=== PATIENT | female | born 1975 | race Caucasian/White ===

== ENCOUNTER 2017-12-30 15:09 | Outpatient (CLI) | payer OTHER ==
[2017-12-30 16:43] LABS: BILIRUBIN,URINE NEGATIVE (NEGATIVE); GLUCOSE, URINE (UA) NEGATIVE (NEGATIVE); KETONES,URINE (UA) NEGATIVE (NEGATIVE); LEUKOCYTE ESTERASE, URINE NEGATIVE (NEGATIVE); NITRITE,URINE NEGATIVE (NEGATIVE); OCCULT BLOOD,URINE SMALL (NEGATIVE); PH,URINE 5.5 PH (5.0-7.5); PROTEIN,URINE NEGATIVE (NEGATIVE); UROBILINOGEN,URINE 0.2 (NORMAL) E.U./dL (NORMAL)
[2017-12-30 16:45] LABS: CLARITY,URINE CLEAR (CLEAR); HCG UR QUAL NEGATIVE
== END 2017-12-30 15:10 | disposition home or self-care (01) ==
LOC: LAB 15:09
PROVIDERS: ATTEND Obstetrics & Gynecology
DX: Z01.812 Encounter for preprocedural laboratory examination (principal); N39.3 Stress incontinence (female) (male)
CPT/HCPCS: 81003; 81025

== ENCOUNTER 2018-01-01 08:30 | Day surgery (SDC) | payer OTHER ==
--- NOTE | 2017-12-30 13:40 | PREOP HISTORY & PHYSICAL ---
ANTICIPATED DATE FOR PROCEDURE: 01/01/2018 IDENTIFICATION: This is a 42-year-old G2, P2-0-0-2. HISTORY OF PRESENT ILLNESS: This is a patient of [facility] who presents for her scheduled preoperative visit. The patient has had a longstanding history of genuine stress incontinence. She states that whenever she laughs, coughs or sneezes, she will have loss of urine. She has to use Poise pads on a daily basis. She will soak 1 pad in a day. These symptoms have been occurring for at least 1-2 years. She denies any problems initiating urinary streams or emptying her bladder. She denies any nocturia, hematuria nor dysuria. Her symptoms are worse when she works out. Currently, she is doing well. Denies any nausea, vomiting, fevers, chills, diarrhea or constipation. PAST MEDICAL HISTORY: Migraine headaches. PAST SURGICAL HISTORY 1. delivery x1. 2. On 10/20/2014, laparoscopic-assisted vaginal hysterectomy and bilateral salpingectomy secondary to microinvasive adenocarcinoma in situ. 3. On 06/15/2011, LEEP. ALLERGIES: IMITREX, IN WHICH HER NECK MUSCLES GET TIGHT AND THEY FEEL LIKE THEY ARE ON FIRE. MEDICATIONS: Maxalt 10 mg p.r.n. SOCIAL HISTORY: She denies any tobacco or illicit drug use. She does consume alcohol on a social basis. 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 Her is Robert, and they have sons Torres and Lucian. PAST OBSTETRICAL HISTORY: 1. With son Torres, she had a fourth-degree laceration secondary to vaginal delivery. 2. Scheduled delivery with the largest baby weighing 9 pounds 10 ounces. PAST GYNECOLOGICAL HISTORY: Pap smears are as follows: 08/06/2008 [facility]; 2007 colposcopy for endocervical curettage with reactive atypia; 08/26/2009 [facility]US Pap smear with presence of high risk HPV; 01/31/2010 colposcopy showing MIRIAN 1 with extension into the endocervical glands; 04/11/2011 positive for high- risk human papillomavirus; 06/15/2011 cold knife cone showing moderate to severe squamous dysplasia (MIRIAN 2-3) and clear margins, adenocarcinoma in situ present at margins; 09/10/2011 Pap smear with ASCUS with negative high-risk human papillomavirus; 09/23/2011 colposcopy, biopsies negative; 04/30/2012 Pap smear [facility]-H with positive high risk human papilloma virus; 01/09/2013 Pap smear is negative; 05/2014 Pap smear showing atypical endocervical cells; 04/28/2014 pathology for endometrial biopsy showing inactive endometrium with stromal pre-decidualization consistent with exogenous hormone effect. Cold knife cone shows endocervical adenocarcinoma in situ, negative for invasive adenocarcinoma, atypical squamous metaplasia suggestive of squamous intraepithelial lesion with margin pending. Endocervical curettings insufficient for evaluation. 10/20/2014, laparoscopic-assisted vaginal hysterectomy, bilateral salpingectomy and cystoscopy shows benign and ectocervix , benign proliferative endometrium, benign bilateral fallopian tubes, uterus measuring 9.5 x 3.5 cm, and uterus weighing 90 grams. Addendum to this path report: Additional levels indicate that the adenocarcinoma in situ focally approximate the ectocervical margin. In addition, additional studies on the squamous epithelium indicates that this is most consistent with a low-grade squamous intraepithelial lesion without high-grade squamous dysplasia or malignancy. The focus is clear of margins. FAMILY HISTORY: Father, coronary artery disease. Maternal aunt, diabetes mellitus type 2. REVIEW OF SYSTEMS: Negative, unless otherwise stated. PHYSICAL EXAMINATION VITAL SIGNS: Stable. She is afebrile. GENERAL: She is a well-developed, well-nourished female, in no apparent distress. She is alert and oriented x3. HEENT: Within normal limits. HEART: Regular. No murmurs or rubs. PULMONARY: Lungs are clear to auscultation bilaterally. ABDOMEN: Soft, nontender. No masses, rebound, rigidity or guarding. She does have a well healed Pfannenstiel skin incision as well as laparoscopic port sites. ASSESSMENT 1. A 42-year-old G2, P2-0-0-2. 2. Genuine stress incontinence, most likely secondary to a traumatic vaginal delivery. PLAN 1. We will have her obtain a urine hCG in preparation for surgery. 2. We will proceed to a scheduled transobturator taping with cystoscopy on . 3. We will recommend she take ibuprofen 800 mg as well as Tylenol for her primary form of pain control. She will then be given a prescription for Vicodin for any breakthrough pain. 4. Prophylactic Levaquin 500 mg 1 tab daily x5 days for UTI prevention. 5. She will be given strict precautions as to avoid heavy lifting for the next 8 weeks. 6. Will discuss with her the risks, benefits, alternatives, indications, and expectations of a transobturator taping with cystoscopy. Included in the discussion are the risk of hemorrhage, infection, damage to surrounding organs, specifically inadvertent perforation into the bladder. 7. She will return to see me at [facility] in 2 weeks for routine postop visit. TD: 12/30/2017 11:00 JAYSON
[~2018-01-01 08:30] MED LIST: GENTAMICIN 80 MG/2 ML VIAL ONE; LIDOCAINE 1%-EPI 1:100000 20 ML MDV ONE
[2018-01-01] MEDS ORDERED: ceFAZolin 2 GM/50 ML 2 GM/50 ML BAG IV ONE (08:33)
[2018-01-01] MEDS ORDERED: LACTATED RINGERS 1,000 ML IV ONE ×2 (08:33→10:36)
[2018-01-01] MEDS ORDERED: CELECOXIB 100 MG CAPSULE PO ONE (08:33)
[2018-01-01] MEDS ORDERED: NEOSTIGMINE 1 MG/1 ML 10 ML MDV IVP ONE (09:00)
[2018-01-01] MEDS ORDERED: PROPOFOL 200 MG/20 ML VIAL IVP ONE (09:00)
[2018-01-01] MEDS ORDERED: fentaNYL 250 MCG/5 ML VIAL IVP ONE (09:00)
[2018-01-01] MEDS ORDERED: ROCURONIUM 50 MG/5 ML VIAL IVP ONE (09:00)
[2018-01-01] MEDS ORDERED: MIDAZOLAM 2 MG/2 ML VIAL IVP ONE (09:00)
[2018-01-01] MEDS ORDERED: LIDOCAINE-MPF 2% 5 ML VIAL IM ONE (09:00)
[2018-01-01] MEDS ORDERED: GLYCOPYRROLATE 1 MG/5 ML VIAL IVP ONE (09:00)
[2018-01-01] MEDS ORDERED: ONDANSETRON 4 MG/2 ML VIAL IVP ONE (09:00)
[2018-01-01] MEDS ORDERED: DEXAMETHASONE 4 MG/ML VIAL IVP ONE (09:00)
[2018-01-01] MEDS ORDERED: LIDOCAINE MPF 1%-EPI 1:200000 30 ML VIAL SUBQ ONE ×2 (09:40)
[2018-01-01] MEDS ORDERED: GENTAMICIN 80 MG/2 ML VIAL IL ONE (09:51)
--- NOTE | 2018-01-01 10:39 | OPERATIVE REPORT ---
Operative Report - Other Other Information/Narrative: Date of Operation: 01/01/2018 Surgeon: Jodie Padilla DO FACOG Cupola Tapper Helper: None Process Safety Manager: Teresa Hu CRNA Anesthesia: GET Pre-op Dx: 1. 42 yo 2. Genuine stress incontinence Post-op Dx: 1. 42 yo 2. Genuine stress incontinence Procedure: 1. Transobuturator taping 2. Cystoscopy Findings: 1. Normal vulva 2. Normal cystoscopy-- no findings of bladder perforation or bleeding Drains: None EBL: 30 mL Complications: None Dictation #: [id number]
--- NOTE | 2018-01-01 11:33 | OPERATIVE REPORT ---
DATE OF SERVICE: 01/01/2018 Physician: Jodie Padilla DO PREOPERATIVE DIAGNOSES 1. A 42-year-old, G2, P2-0-0-2. 2. Genuine stress incontinence. POSTOPERATIVE DIAGNOSES 1. A 42-year-old, G2, P2-0-0-2. 2. Genuine stress incontinence. NAME OF PROCEDURE 1. Transobturator taping. 2. Cystoscopy. SURGEON: Jodie Padilla DO, FACOG ANESTHESIA: General endotracheal tube. MUSEUM EXHIBIT TECHNICIAN: None. FOUNTAIN OPERATOR: Teresa Hu CRNA FINDINGS 1. Normal vulva. 2. Normal cystoscopy without any findings of bladder perforation or bleeding. 3. [employer] transobturator surgical kit was used, manufacture [employer], the batch code is [id number], use by date 2018-12-11. DRAINS: None. ESTIMATED BLOOD LOSS: 30 mL. COMPLICATIONS: None. BRIEF HISTORY: This patient is a patient of [facility] who has been having worsening symptoms for loss of urine for over a year. The patient described loss of urine consistently with laughing, coughing, sneezing or increase in activity. She has been having to wear a Poise pad in order to not soak her clothes. I discussed with the patient the risks, benefits, alternatives, indications, expectations of a transobturator taping, as well as cystoscopy. Included discussion were the risks of hemorrhage, infection, bladder perforation and mesh erosion. After the patient's questions were answered to her satisfaction, she verbalized her desire to proceed with surgery. Consent forms have been signed. OPERATION IN DETAIL: The patient was identified, consented, and taken to the operating room where IV access was already in place. Sequential compression devices were placed on her lower extremities, and turned on. She was then given satisfactory general endotracheal tube anesthesia as per Teresa Hu. Two attempts had to be made to get satisfactory anesthesia. The patient was prepped and draped in normal sterile fashion in the lithotomy position using the Yellofins stirrups. Her bladder was drained with an in and out catheter. The patient was given 2 grams of Ancef IV for postoperative cellulitis prophylaxis. A timeout was performed which correctly identified the patient, site of the procedures and the procedures themselves. Two stab incisions were made in the inguinal gluteal folds bilaterally at the level of the clitoris after 1% lidocaine with epinephrine was injected to the respective sites. A total of 20 mL were given for the case. The incisions were approximately 5 mm in length. More of the same anesthetic was then injected in the vagina just inferior to the urethra. About 1 cm inferior to the urethra, a 2 cm incision was made in the vertical fashion in the midline. Two tunnels were created sharply and bluntly in the periurethral muscular tissue towards the respective stab incision sites. Caution was made not to go too superficial in place and make an incision in the vagina, and not too deep to perforate the bladder. Next, with the helical needles, the needles were placed through the respective stab incision to the vaginal incision. The transobturator tape was then placed loosely on top of the inferior bladder neck. The tape across the bladder neck was then gently tightened using Montero scissors as a guide to tighten the bladder sling, but not so much that it would be restrictive to the urethra. Cystoscopy was then performed using 0.9% NaCl. Cystoscopy revealed a normal bladder without any evidence of perforation, hematomas or active bleeding. Five pictures were taken. Cystoscopy was then completed and then the vaginal incision was closed with a 2-0 Vicryl in a running locked fashion. The excess sling material was then trimmed at the level of the skin bilaterally and then the skin was closed with a single subcuticular stitch of 4-0 Monocryl and then Dermabond. The patient tolerated the procedure well and was taken back to the recovery room in stable and awake condition. She will be discharged to home later today after she has been able to urinate and postoperative criteria are met. The patient will see me at [facility] in 2 weeks for a routine postop followup visit. She has been given prescriptions for Vicodin and for Levaquin for postoperative recovery. The patient is to call should she have any worsening fevers, chills, abdominal pain, vaginal bleeding or difficulty with urination. TD: 01/01/2018 11:32 JAYSON
[2018-01-01 11:36] VITALS: BP 116/69
[2018-01-01] MEDS ORDERED: HYDROcod/ACETAM 5/325 MG TABLET ONE (11:39)
== END 2018-01-01 08:31 | disposition home or self-care (01) ==
LOC: SDS 08:30
PROVIDERS: ATTEND Obstetrics & Gynecology
PROC: 0TJB8ZZ Inspection of Bladder, Via Natural or Artificial Opening Endoscopic (ICD-10-PCS; 2018-01-01)
PROC: 0TSD0ZZ Reposition Urethra, Open Approach (ICD-10-PCS; principal; 2018-01-01 09:15)
DX: N39.3 Stress incontinence (female) (male) (principal)
CPT/HCPCS: 57288; A9270; J0690; J1580; J3010; J7120